=== PATIENT | male | born 1980 ===

== ENCOUNTER 2024-10-26 07:57 | Outpatient (CLI) | payer BC, MEDICAID, SELFPAY ==
--- NOTE | 2024-10-26 08:07 | CT_ITS ---
WS: [id number] CT LUMBAR SPINE, noncontrast. HISTORY: VERTEBROGENIC LOW BACK PAIN TECHNIQUE: Contiguous 2.0 mm axial imaging are performed. Sagittal and coronal reformats are submitte d and reviewed. All CT scans at [facility] use at least one of these dose optimization techni ques: automated exposure control; mA and/or kV adjustment per patient size (includes targeted exams w here dose is matched to clinical indication); or iterative reconstruction. IV contrast: None DLP: 819.38 mGy.cm COMPARISON: None available. L3 retrolisthesis by 2 mm. Disc spaces are narrowed and desiccated at L4-5 and L5-S1. No acute fractu re. L1-2: Mild annular disc bulging and facet arthritis. L2-3: Mild annular disc bulging with mild facet arthritis. L3-4: Moderate annular disc bulging with osteophytic ridging and a moderate central disc protrusion. Ligamentum flavum and facet arthritis. Moderate central, bilateral subarticular recess and mild marissa inal stenosis. Most significant encroachment upon the traversing L4 nerve roots. L4-5: Marked osteophytic ridging with annular disc bulging. Marked facet and ligamentum flavum hypert rophy. Moderate to severe central with severe bilateral subarticular recess and moderate foraminal st enosis. There is significant contact on the traversing L5 nerve roots. L5-S1: Marked osteophytic ridging with mild disc bulging. Osteophytes contact the ventral thecal sac and the S1 nerve roots. Osteophytes extend into the foramina and also contact the L5 nerve roots. Mil d central with moderate to severe subarticular recess and foraminal stenosis. Scattered calcified plaque within the abdominal aorta. Bridging osteophytes along the superior SI jaymie nts. CT/CT lumbar spine wo con* [id number] IMPRESSION: 1. No acute lumbar spine fracture. 2. L5-S1: Mild central with moderate to severe bilateral subarticular recess a nd foraminal stenosis due to combination of disc and facet and predominant larg e osteophytes. 3. L4-5: Moderate to severe central with severe bilateral subarticular recess and moderate foraminal stenosis. Significant contact on the traversing L5 nerve roots. 4. L3-4: Moderate size central disc protrusion. Moderate central, bilateral fuentes barticular recess and mild foraminal stenosis. Significant encroachment upon th e traversing L4 nerve roots.
== END 2024-10-26 07:58 | disposition home or self-care (01) ==
PROVIDERS: Visit Provider Nurse Practitioner
DX: M51.26 Other intervertebral disc displacement, lumbar region (principal); R93.7 Abnormal findings on diagnostic imaging of other parts of musculoskeletal system; M48.07 Spinal stenosis, lumbosacral region; M25.78 Osteophyte, vertebrae; M48.061 Spinal stenosis, lumbar region without neurogenic claudication; M47.896 Other spondylosis, lumbar region; M51.369 Other intervertebral disc degeneration, lumbar region without mention of lumbar back pain or lower extremity pain; M51.379 Other intervertebral disc degeneration, lumbosacral region without mention of lumbar back pain or lower extremity pain
CPT/HCPCS: 72131

== ENCOUNTER 2025-01-26 13:01 | Inpatient (IN) | payer BC, MEDICAID, SELFPAY ==
--- NOTE | 2025-01-26 13:08 | W.ED.PSYCHS ---
HPI - Psych General: Chief Complaint: Psychiatric Symptoms Stated Complaint: SI Time Seen by Provider: 01/26/25 13:04 History of Present Illness: 44-year-old male presents emergency room via EMS complaint of feeling anxious. Last a very depressed he took several of his blood pressure medications to try to harm himself. He has tried to harm himself in the past as well Related Data Home Medications ?Medication ?Instructions ?Recorded ?Confirmed amlodipine 5 mg tablet 5 mg PO DAILY 01/26/25 01/26/25 buspirone 10 mg tablet 10 mg PO TID PRN Anxiety 01/26/25 01/26/25 epinephrine 0.3 mg/0.3 mL See Rx Instructions .Route .COMPLEX 01/26/25 01/26/25 injection, auto-injector famotidine 20 mg tablet 20 mg PO BID 01/26/25 01/26/25 losartan 100 mg tablet 100 mg PO DAILY 01/26/25 01/26/25 methocarbamol 500 mg tablet 500 mg PO BID PRN Spasms 01/26/25 01/26/25 prednisone 10 mg tablet 10 mg PO DAILY 01/26/25 01/26/25 quetiapine 50 mg tablet 50 mg PO DAILY 01/26/25 01/26/25 rosuvastatin 5 mg tablet 5 mg PO QPM 01/26/25 01/26/25 tramadol 50 mg tablet 50 mg PO Q4H PRN Pain 01/26/25 01/26/25 venlafaxine 75 mg tablet 75 mg PO TID 01/26/25 01/26/25 Allergies Allergy/AdvReac Type Severity Reaction Status Date / Time Alpha-Gal Allergy Unknown Verified 01/26/25 14:48 (Zefgrcwvs-Nkayr-5,3-Gala Review of Systems Const: Denies: fever(s) or chills Card: Denies: chest pain Resp: Denies: dyspnea GI: Denies: abdominal pain : Denies: dysuria, urinary frequency or urinary urgency Musc: Denies: neck pain or back pain Skin/Breast: Denies: rash Physical Exam Const: COMMON NORMALS: no acute distress GENERAL APPEARANCE: cooperative and comfortable ORIENTATION/CONSCIOUSNESS: Yes awake, Yes oriented to person, Yes oriented to place and Yes oriented to time HENMT: COMMON NORMALS: normocephalic, atraumatic and hearing grossly normal bilaterally HEAD & SCALP: normocephalic and atraumatic Resp: COMMON NORMALS: normal respiratory effort, No retractions, No use of accessory muscles and clear to auscultation bilaterally AUSCULTATION: clear to auscultation bilaterally Cardio: COMMON NORMALS: regular rate, regular rhythm and No murmurs present (Cardio) RATE: regular rate RHYTHM: regular rhythm GI: COMMON NORMALS: Soft to palpation and No hepatosplenomegaly present AUSCULTATION: Yes normoactive bowel sounds PALPATION: Yes Soft to palpation, No Tenderness to palpation present (GI), No Guarding due to palpation present (GI) and Yes No hepatosplenomegaly present Extremity: COMMON NORMALS: normal to inspection, capillary refill normal, no clubbing, cyanosis or edema, no calf tenderness and no pedal edema Neuro: SENSORIUM/ORIENTATION: Yes oriented to person, Yes oriented to place and Yes oriented to time Skin: COMMON NORMALS: no rashes or lesions noted GENERAL SKIN EXAM: no rashes or lesions noted Course Vital Signs: Vital signs: Vital Signs Temperature 97.8 F 01/26/25 13:27 Pulse Rate 92 01/26/25 15:51 Respiratory Rate 18 01/26/25 15:00 Blood Pressure 152/73 01/26/25 15:51 Pulse Oximetry 96 01/26/25 15:51 Oxygen Delivery Me thod Room Air 01/26/25 15:00 MDM - Psych Medical Decision Making Creatinine and electrolytes normal. Discussed Dr. Adrian will admit under 96-hour hold 96-hour hold paperwork filled out with affidavits from the crisis center. Patient is agreeable to admission should have repeat BMP in the morning Lab Data 01/26/25 13:13 01/26/25 13:13 Laboratory Results WBC 14.79 10^3/uL (3.29-11.43) H 01/26/25 13:13 RBC 5.30 10^6/uL (3.85-5.65) 01/26/25 13:13 Hgb 15.50 g/dL (11.27-16.99) 01/26/25 13:13 Hct 47.3 % (37-53) 01/26/25 13:13 MCV 89.2 fl (82-101) 01/26/25 13:13 MCH 29.2 pg (27-33) 01/26/25 13:13 MCHC 32.8 g/dL (30-55) 01/26/25 13:13 RDW 13.1 % (12.1-15.1) 01/26/25 13:13 Plt Count 274 10^3/cmm (157-399) 01/26/25 13:13 MPV 9.5 fL (7.4-10.4) 01/26/25 13:13 Neut % (Auto) 74.9 % 01/26/25 13:13 Lymph % (Auto) 16.2 % 01/26/25 13:13 [place] % (Auto) 6.2 % 01/26/25 13:13 Eos % (Auto) 1.4 % 01/26/25 13:13 Baso % (Auto) 0.9 % 01/26/25 13:13 Neut # (Auto) 11.08 10^3/uL (1.8-7.7) H 01/26/25 13:13 Lymph # (Auto) 2.4 10^3/uL (0.8-4.8) 01/26/25 13:13 Screven # (Auto) 0.9 10^3/uL (0.2-0.9) 01/26/25 13:13 Eos # (Auto) 0.2 10^3/uL (0.0-0.8) 01/26/25 13:13 Baso # (Auto) 0.1 10^3/uL (0.0-0.1) 01/26/25 13:13 Nucleated RBC % (auto) 0 % 01/26/25 13:13 Nucleated RBCs # 0.0 /100WBC 01/26/25 13:13 Sodium 140 mmol/L (136-145) 01/26/25 13:13 Potassium 3.8 mmol/L (3.5-5.1) 01/26/25 13:13 Chloride 106 mmol/L (98-107) 01/26/25 13:13 Carbon Dioxide 19 mmol/L (22-29) L 01/26/25 13:13 Anion Gap 18.8 (5-19) 01/26/25 13:13 BUN 14 mg/dL (6-20) 01/26/25 13:13 Creatinine 0.9 mg/dL (0.7-1.2) 01/26/25 13:13 GFR Calculation 91.7 mL/min (90-130) 01/26/25 13:13 Glucose 92 mg/dL (65-115) 01/26/25 13:13 Calculated Osmolality 290 mOsm/kg (285-295) 01/26/25 13:13 Calcium 9.3 mg/dL (8.5-10.5) 01/26/25 13:13 Total Bilirubin 0.3 mg/dL (0.15-1.2) 01/26/25 13:13 AST 23 U/L (0-40) 01/26/25 13:13 ALT 26 U/L (0-41) 01/26/25 13:13 Alkaline Phosphatase 78 U/L (40-130) 01/26/25 13:13 Total Protein 7.3 g/dL (6.6-8.7) 01/26/25 13:13 Albumin 4.4 g/dL (3.5-5.2) 01/26/25 13:13 Globulin 2.9 g/dL (1.3-4.6) 01/26/25 13:13 Salicylates < 0.3 mg/dL (3-10) L 01/26/25 13:13 Acetaminophen < 5.0 ug/mL (10-30) L 01/26/25 13:13 No radiology studies performed this visit Discharge Plan Discharge Patient Disposition: Admitted As Inpatient Admit Provider: Norbert Adrian Clinical Impression: Suicidal ideation, Depression Condition: Stable Coding Level of Care Code ED Staff Consultant for Claudette Stephens
--- NOTE | 2025-01-26 13:22 | PC.NURSE ---
pt belongings, including vape, phone, wallet, socks, shirt, shoes, pants, placed into locker. pt has boxers/glasses on person. pt changed into green paper scrubs. pt performed shaking of undergarments during changing into scrubs to show they had no personal belongings on body.
[2025-01-26 13:23] LABS: Basophils # 0.1 10^3/uL (0.0-0.1); Basophils % 0.9 %; Eosinophils # 0.2 10^3/uL (0.0-0.8); Eosinophils % 1.4 %; Hematocrit 47.3 % (37-53); Lymphocytes # 2.4 10^3/uL (0.8-4.8); Lymphocytes % 16.2 %; Mean Corpuscular HGB Conc 32.8 g/dL (30-55); Mean Corpuscular Hemoglobin 29.2 pg (27-33); Mean Corpuscular Volume 89.2 fl (82-101); Mean Platelet Volume 9.5 fL (7.4-10.4); Monocytes # 0.9 10^3/uL (0.2-0.9); Monocytes % 6.2 %; Neutrophils # 11.08 10^3/uL (1.8-7.7); Neutrophils % 74.9 %; Nucleated Red Blood Cells % 0 %; Platelet Count 274 10^3/cmm (157-399); Red Cell Distribution Width 13.1 % (12.1-15.1); White Blood Count 14.79 10^3/uL (3.29-11.43)
[2025-01-26 13:27] VITALS: BP 155/72; PULSE 88; RESP 18; TEMP 36.6; O2SAT 98
[2025-01-26 13:40] LABS: Alanine Aminotransferase 26 U/L (0-41); Albumin Level 4.4 g/dL (3.5-5.2); Alkaline Phosphatase 78 U/L (40-130); Anion Gap 18.8 (5-19); Aspartate Amino Transferase 23 U/L (0-40); Blood Urea Nitrogen 14 mg/dL (6-20); Calcium 9.3 mg/dL (8.5-10.5); Carbon Dioxide 19 mmol/L (22-29); Chloride 106 mmol/L (98-107); Globulin 2.9 g/dL (1.3-4.6); Glomerular Filtration Rate 91.7 mL/min (90-130); Glucose 92 mg/dL (65-115); Osmolality Calculated 290 mOsm/kg (285-295); Potassium 3.8 mmol/L (3.5-5.1); Sodium 140 mmol/L (136-145); Total Bilirubin 0.3 mg/dL (0.15-1.2); Total Protein 7.3 g/dL (6.6-8.7)
[2025-01-26 13:42] LABS: Acetaminophen < 5.0 ug/mL (10-30); Salicylate < 0.3 mg/dL (3-10)
--- NOTE | 2025-01-26 14:40 | PC.NURSE ---
96 hour hold rights read and reviewed with patient. Patient verbalized understandings. Copy of rights given to patient. Pete from security present during reading of rights.
--- NOTE | 2025-01-26 14:45 | PC.PHAR ---
Pt has med list on his My [employer] log in. Witnessed each order and transferred the information. Aryan Arriaga is faxing the last fill dates to be added to pts medications.
[2025-01-26 15:00] VITALS: RESP 18; O2SAT 99
[2025-01-26] MEDS: acetaminophen 325 mg Tablet 650 MG PO (15:48)
[2025-01-26 15:51] VITALS: BP 152/73; PULSE 92; O2SAT 96
[2025-01-26 15:55] VITALS: BP 136/89; PULSE 65; RESP 16; TEMP 36.8; O2SAT 96
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
[2025-01-26 17:33] LABS: Amphetamines Screen Urine Negative (Negative); Barbiturates Screen Urine Negative (Negative); Benzodiazepines Screen Urine Negative (Negative); Cocaine Screen Urine Negative (Negative); Opiate Screen Urine Negative (Negative); PCP Screen Urine Negative (Negative); THC Screen Urine Negative (Negative)
[2025-01-26] MEDS: hyDROXYzine 25 mg Capsule 50 MG PO (21:37)
[2025-01-26] MEDS: venlafaxine 75 mg Tablet PO (21:38)
[2025-01-26] MEDS: atorvastatin 40 mg Tablet 20 MG PO (21:38)
[2025-01-26] MEDS: famotidine 20 mg Tablet PO (21:40)
[2025-01-26 22:00] VITALS: BP 110/66; PULSE 70; RESP 20; TEMP 36.5; O2SAT 97
[2025-01-27 06:00] VITALS: BP 117/81; PULSE 85; RESP 19; O2SAT 96
[2025-01-27 07:43] LABS: Anion Gap 14.3 (5-19); Blood Urea Nitrogen 15 mg/dL (6-20); Calcium 9.1 mg/dL (8.5-10.5); Carbon Dioxide 23 mmol/L (22-29); Chloride 107 mmol/L (98-107); Glomerular Filtration Rate 91.7 mL/min (90-130); Glucose 104 mg/dL (65-115); Osmolality Calculated 291 mOsm/kg (285-295); Potassium 4.3 mmol/L (3.5-5.1); Sodium 140 mmol/L (136-145)
[2025-01-27 08:39] VITALS: BP 117/81
[2025-01-27] MEDS: quetiapine 25 mg Tablet 50 MG PO (08:39)
[2025-01-27] MEDS: losartan 50 mg Tablet 100 MG PO (08:39)
[2025-01-27] MEDS: famotidine 20 mg Tablet PO ×2 (08:39→20:28)
[2025-01-27] MEDS: venlafaxine 75 mg Tablet PO ×3 (08:39→20:30)
[2025-01-27] MEDS: amlodipine 5 mg Tablet PO (08:39)
[2025-01-27] MEDS: TRAMadol 50 mg Tablet PO ×4 (08:40→23:34)
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
[2025-01-27 14:00] VITALS: BP 115/78; PULSE 83; RESP 18; TEMP 36.8; O2SAT 90
[2025-01-27] MEDS: nicotine 4 mg lozenge MUCOUS MEM ×2 (18:07→21:18)
[2025-01-27] MEDS: acetaminophen 325 mg Tablet 650 MG PO ×2 (19:28→23:35)
[2025-01-27] MEDS: methocarbamol 500 mg Tablet PO (19:36)
[2025-01-27] MEDS: atorvastatin 40 mg Tablet 20 MG PO (20:28)
[2025-01-27 20:41] VITALS: BP 117/85; PULSE 76; RESP 17; TEMP 36.8; O2SAT 97
[2025-01-28] MEDS: TRAMadol 50 mg Tablet PO ×3 (03:04→18:17)
[2025-01-28] MEDS: acetaminophen 325 mg Tablet 650 MG PO (03:05)
[2025-01-28 06:00] VITALS: BP 115/75; PULSE 86; RESP 17; TEMP 36.5; O2SAT 97
[2025-01-28] MEDS: nicotine 4 mg lozenge MUCOUS MEM ×3 (07:47→20:53)
[2025-01-28 08:49] VITALS: BP 115/75
[2025-01-28] MEDS: losartan 50 mg Tablet 100 MG PO (08:49)
[2025-01-28] MEDS: amlodipine 5 mg Tablet PO (08:49)
[2025-01-28] MEDS: quetiapine 25 mg Tablet 50 MG PO (08:49)
[2025-01-28] MEDS: famotidine 20 mg Tablet PO ×2 (08:49→20:51)
[2025-01-28] MEDS: venlafaxine 75 mg Tablet PO ×3 (08:49→20:51)
[2025-01-28 14:00] VITALS: BP 135/74; PULSE 78; RESP 16; TEMP 37; O2SAT 98
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
[2025-01-28] MEDS: atorvastatin 40 mg Tablet 20 MG PO (20:51)
[2025-01-28 22:00] VITALS: BP 134/93; PULSE 77; RESP 16; O2SAT 98
[2025-01-29 06:00] VITALS: BP 131/91; PULSE 77; RESP 16; TEMP 36.8; O2SAT 100; BMI 32.3
[2025-01-29] MEDS: BuSPIRONE 10 mg Tablet PO ×2 (08:01→16:32)
[2025-01-29] MEDS: methocarbamol 500 mg Tablet PO ×2 (08:01→18:03)
[2025-01-29] MEDS: venlafaxine ER (24HR) 75 mg Capsule 225 MG PO (08:01)
[2025-01-29] MEDS: nicotine 4 mg lozenge MUCOUS MEM ×4 (08:02→20:18)
[2025-01-29] MEDS: TRAMadol 50 mg Tablet PO ×3 (08:02→20:16)
[2025-01-29] MEDS: amlodipine 5 mg Tablet PO (08:02)
[2025-01-29] MEDS: quetiapine 25 mg Tablet 50 MG PO (08:02)
[2025-01-29] MEDS: venlafaxine ER (24HR) 37.5 mg Capsule PO (08:02)
[2025-01-29 08:03] VITALS: BP 131/91
[2025-01-29] MEDS: famotidine 20 mg Tablet PO ×2 (08:03→20:15)
[2025-01-29] MEDS: losartan 50 mg Tablet 100 MG PO (08:03)
[2025-01-29 14:00] VITALS: BP 124/83; PULSE 74; RESP 16; O2SAT 98
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
[2025-01-29] MEDS: atorvastatin 40 mg Tablet 20 MG PO (20:15)
[2025-01-29 22:00] VITALS: BP 120/83; PULSE 89; RESP 18; TEMP 36.7; O2SAT 96
[2025-01-30] MEDS: TRAMadol 50 mg Tablet PO ×3 (04:56→17:16)
[2025-01-30 06:00] VITALS: BP 134/92; PULSE 65; RESP 18; O2SAT 97
[2025-01-30 08:25] VITALS: BP 134/92
[2025-01-30] MEDS: losartan 50 mg Tablet 100 MG PO (08:25)
[2025-01-30] MEDS: venlafaxine ER (24HR) 75 mg Capsule 225 MG PO (08:26)
[2025-01-30] MEDS: quetiapine 25 mg Tablet 50 MG PO (08:26)
[2025-01-30] MEDS: famotidine 20 mg Tablet PO ×2 (08:26→20:29)
[2025-01-30] MEDS: venlafaxine ER (24HR) 37.5 mg Capsule PO (08:26)
[2025-01-30] MEDS: amlodipine 5 mg Tablet PO (08:26)
[2025-01-30] MEDS: nicotine 4 mg lozenge MUCOUS MEM ×5 (08:30→18:46)
[2025-01-30 14:00] VITALS: BP 117/82; PULSE 98; RESP 16; TEMP 36.7; O2SAT 95
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
[2025-01-30] MEDS: BuSPIRONE 10 mg Tablet PO (17:14)
[2025-01-30 19:24] VITALS: BP 123/81; PULSE 92; RESP 18; TEMP 36.8; O2SAT 95
[2025-01-30] MEDS: atorvastatin 40 mg Tablet 20 MG PO (20:29)
[2025-01-30] MEDS: trazodone 50 mg Tablet PO (20:30)
[2025-01-31 06:00] VITALS: BP 121/82; PULSE 73; RESP 16; TEMP 36.4; O2SAT 98
[2025-01-31] MEDS: nicotine 4 mg lozenge MUCOUS MEM ×6 (06:33→19:47)
[2025-01-31] MEDS: TRAMadol 50 mg Tablet PO ×2 (06:33→17:04)
[2025-01-31 08:21] VITALS: BP 121/82
[2025-01-31] MEDS: amlodipine 5 mg Tablet PO (08:21)
[2025-01-31] MEDS: BuSPIRONE 10 mg Tablet PO ×2 (08:21→17:04)
[2025-01-31] MEDS: venlafaxine ER (24HR) 150 mg Capsule 300 MG PO (08:21)
[2025-01-31] MEDS: methylphenidate 10 mg Tablet PO ×2 (08:21→12:17)
[2025-01-31] MEDS: losartan 50 mg Tablet 100 MG PO (08:21)
[2025-01-31] MEDS: quetiapine 25 mg Tablet 50 MG PO (08:21)
[2025-01-31] MEDS: famotidine 20 mg Tablet PO ×2 (08:21→20:18)
[2025-01-31 14:00] VITALS: BP 110/76; PULSE 94; RESP 16; TEMP 36.5; O2SAT 97
--- NOTE | 2025-01-31 15:26 | W.PM.NPUPNS ---
Subjective NPU Subjective: 44-year-old male admitted with overdose on medications with suicidal ideation. Patient had reported improved mood. He had reported that he felt that he was better able to stay on task. He denied any feelings of hopelessness. He had reported that he continues to struggle with low energy. He had stated that he was feeling calmer and reported improved sleep. He had reported sensitivity to shrimp and animal-based products with a diagnosis of alpha gal. Patient had reported no recent nightmares or flashbacks. He had reported improved ability to concentrate but still reported having struggles with staying on task for long periods of time including continued problems with reading. Mental Status Exam MSE Comments: This is an overweight versus obese white male, in hospital scrubs with improved grooming and fair eye contact. No abnormal movements, except for mild psychomotor retardation. He was cooperative with exam in moderate distress. Speech was mostly normal in rate and volume. Mood described as better; affect was less restricted. Thought process was linear. Thought content: patient endorsed suicidal but denied homicidal ideation, there were no delusions reported or noted, patient denied any auditory or visual hallucinations. Reports feelings of helplessness, hopelessness, worthlessness, and outbreaks, with a history of depression and anxiety. Experiences blackouts and memory lapses, not remembering actions. Stressors include the loss of both parents, family history of bipolar disorder, ADHD, depression, addiction, and trauma in youth. Attention span was poor. and memory appear somewhat reliable, but none were formally tested. He is alert and oriented times three. Insight was improving and judgment remained guarded. Impulse control appeared better. Fund of knowledge was poor. Vitals/I&O/Wt Last Vital Signs Temp 97.7 F 01/31/25 14:00 Pulse 94 01/31/25 14:00 Resp 16 01/31/25 14:00 BP 110/76 01/31/25 14:00 Pulse Ox 97 01/31/25 14:00 O2 Del Method Room Air 01/31/25 14:00 Data NPU 01/26/25 13:13 01/27/25 07:15 A&P Assessment and plan (1) Depression: (2) Suicidal ideation: (3) PTSD (post-traumatic stress disorder): (4) Suicide attempt: (5) Anxiety: Plan This is a 44year old, white male, with a long psychiatric history of hospitalizations, addiction and depression and anxiety. The patient is experiencing overwhelming feelings of helplessness, hopelessness, worthlessness, and emotional outbreaks. There is a history of depression, anxiety, and some PTSD. The patient has been diagnosed with a mental health condition in the past, though the specific diagnosis is not recalled. There is a family history of bipolar disorder, ADHD, depression, addiction, and suicide. The patient has had multiple suicide attempts and has been hospitalized in psychiatric facilities several times, with the last hospitalization occurring approximately six years ago. The patient is currently not taking any medication for depression, and previous medications have not been effective. Patient is interested in exploring the possibility that he might have ADHD further. 1. Continue Effexor xr at 300mg daily today. Continue seroquel 50mg at night to target depression/ptsd symptoms. Continue Ritalin 10mg bid 2. Continue every 15 minute checks for safety. 3. Encourage individual, group, and milieu therapy. 4. Recommend sober living treatment at the highest level of care to which he is willing to commit. 5. Evaluate against the backdrop of the 96-hour hold. PDMP PDMP Reviewed: Not Reviewed Involuntary Hold Information Hold Status: Legal Status: 96 Hour Hold Date/Time Hold Expires: 02/01/25@1345 Attestations NPU Medical Necessity Statement*: Inpatient hospitalization is medically necessary and the clinically appropriate intervention at this time. We will consider medications and make changes as indicated. Patient's likely length of stay is 1-2 days. Coding Level of Care Code Acute Code for [facility] Fwd Diagnoses Depression F32.A Suicidal ideation R45.851 PTSD (post-traumatic stress disorder) F43.10 Suicide attempt T14.91XA Anxiety F41.9
[2025-01-31] MEDS: methocarbamol 500 mg Tablet PO (17:04)
[2025-01-31] MEDS: atorvastatin 40 mg Tablet 20 MG PO (19:45)
[2025-01-31] MEDS: hyDROXYzine 25 mg Capsule 50 MG PO (19:45)
[2025-01-31 20:22] VITALS: BP 128/85; PULSE 97; RESP 18; TEMP 36.7; O2SAT 96
[2025-02-01] MEDS: TRAMadol 50 mg Tablet PO (04:39)
[2025-02-01 06:00] VITALS: BP 115/81; PULSE 87; RESP 18; TEMP 36.4; O2SAT 95
[2025-02-01 08:05] VITALS: BP 130/94
[2025-02-01] MEDS: quetiapine 25 mg Tablet 50 MG PO (08:05)
[2025-02-01] MEDS: losartan 50 mg Tablet 100 MG PO (08:05)
[2025-02-01] MEDS: famotidine 20 mg Tablet PO (08:07)
[2025-02-01] MEDS: amlodipine 5 mg Tablet PO (08:07)
[2025-02-01] MEDS: methylphenidate 10 mg Tablet PO (08:07)
[2025-02-01] MEDS: BuSPIRONE 10 mg Tablet PO (08:07)
[2025-02-01] MEDS: venlafaxine ER (24HR) 150 mg Capsule 300 MG PO (08:07)
[2025-02-01] MEDS: nicotine 4 mg lozenge MUCOUS MEM ×2 (08:09→09:47)
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
[2025-02-01 09:00] VITALS: BP 130/94; PULSE 87; RESP 18; TEMP 36.4; O2SAT 95
== END 2025-02-01 10:35 | disposition home or self-care (01) | DRG 918 ==
LOC: ER 13:52 → NP 15:48
PROVIDERS: Admitting Provider Psychiatry & Neurology Psychiatry; Emergency Provider Family Medicine; Visit Provider Psychiatry & Neurology Psychiatry
DX: T50.902A Poisoning by unspecified drugs, medicaments and biological substances, intentional self-harm, initial encounter (principal); R45.851 Suicidal ideations; F32.A Depression, unspecified; F43.10 Post-traumatic stress disorder, unspecified; Z91.51 Personal history of suicidal behavior; F41.9 Anxiety disorder, unspecified; F17.290 Nicotine dependence, other tobacco product, uncomplicated; F10.10 Alcohol abuse, uncomplicated; E66.9 Obesity, unspecified; Z68.32 Body mass index [BMI] 32.0-32.9, adult; Z79.891 Long term (current) use of opiate analgesic; Z81.8 Family history of other mental and behavioral disorders
CPT/HCPCS: 36415; 80048; 80053; 80306; 80307; 85025; 97116; 97150; 97165; 99285; J9999